=== PATIENT | male | born 1950 | race Caucasian/White ===

== ENCOUNTER 2017-07-19 14:17 | Outpatient (CLI) | payer OTHER ==
--- NOTE | 2017-07-19 15:52 | MRI ---
MRI LUMBAR SPINE NONCONTRAST: 07/19/17 HISTORY: Low back pain. Radiculopathy. FINDINGS: Conus medullaris has a normal appearance. Mild chronic compression of the L2 inferior end plate is ap parent. Scattered hemangiomas are apparent within the bone marrow of the vertebral bodies. There is d esiccation of all the intervertebral disc. T12-L1: Central canal and neural foramina are patent. L1-2: Mild disc space narrowing. Minimal posterior disc bulge with posterior annular fissure. Thecal sac and neural foramina are patent. L2-3: Disc space narrowing. Minimal spondylolisthesis. Mild posterior disc bulge. Thecal sac is paten t. Neural foramina are patent. L3-4: Far left lateral disc bulge encroaches upon the left L3 nerve root within the neural foramen. T he posterior component of the disc bulge and circumferential degenerative changes result in mild to m oderate stenosis of the central canal. L4-5: Disc space narrowing. Minimal degenerative spondylolisthesis. Posterior disc bulge and circumfe rential degenerative changes result in moderate stenosis of the central canal and mild stenosis of ea ch neural foramen. L5-S1: Posterior disc bulge. Thecal sac and neural foramina are patent. IMPRESSION: Mild multilevel degenerative changes throughout the lumbar spine as detailed above. Stenosis is great est at the L4-5 level central canal. Clinical correlation regarding other signs and symptoms of pseud oclaudication is required. POS: [facility]
--- NOTE | 2017-07-19 15:57 | RAD ---
THREE VIEWS LUMBAR SPINE INCLUDING FLEXION AND EXTENSION VIEWS 07/19/17 HISTORY: Low back pain for three years which has gotten worse in the past three months. COMPARISON: 09/23/14 FINDINGS: Again noted is slight height loss along the superior end plate of the L2 vertebral body without johansen e in degree of loss of height from the prior study suggesting a minimal remote compression fracture o f L2. Degenerative changes are again seen throughout the lumbar spine. Mild narrowing of the intervertebral disc spaces are again present at multiple levels. No acute fracture or subluxation is seen and there is no abnormal translational motion seen between the flexion and extension views. Surgical clips ove rlie the upper abdomen as well as overlying the pelvis. Vascular calcifications are again seen in the abdominal aorta and leonor arteries. IMPRESSION: 1. Stable minimal compression fracture of the L2 vertebral body. No new compression fracture or subluxation is seen involving the lumbar spine. 2. Mild multilevel degenerative changes lumbar spine. POS: [facility]
== END 2017-07-19 14:18 | disposition home or self-care (01) ==
LOC: SCSMRI 14:17
PROVIDERS: ATTEND Neurological Surgery
DX: M47.26 Other spondylosis with radiculopathy, lumbar region (principal); M48.061 Spinal stenosis, lumbar region without neurogenic claudication
CPT/HCPCS: 72100; 72148

== ENCOUNTER 2019-03-12 08:39 | Outpatient (CLI) | payer MEDICARE ==
[2019-03-12 10:45] LABS: #Basophils 0.1 thou/uL (0.0-0.2); #Eosinphils 0.4 thou/uL (0.0-0.7); #Lymphocytes 2.7 thou/uL (1.20-3.40); #Monocytes 1.2 thou/uL (0.11-0.59); #Neutrophils 7.3 thou/uL (1.40-6.50); %Basophils 0.6 % (0.0-1.0); %Eosinophils 3.3 % (0.0-10.0); %Monocytes 10.2 % (0.0-10.0); Hemoglobin 14.6 g/dL (14.0-18.0); Mean Corpuscular HGB CONC 32.5 g/dL (32.0-36.0); Mean Corpuscular Hemoglobin 30.7 pg (27.0-31.0); Mean Corpuscular Volume 94.4 fL (78.0-98.0); Mean Platelet Volume 6.9 fL (7.4-10.4); Platelet Count 350 thou/uL (130-400); RBC Distribution Width 12.4 % (11.5-14.5); Red Blood Cell (RBC) Count 4.74 mill/uL (4.70-6.10); White Blood Cell (WBC) Count 11.6 thou/uL (4.8-10.8)
[2019-03-12 10:50] LABS: INR-International Normal Ratio 0.9; Prothrombin Time 12.2 SEC (12.0-14.7)
[2019-03-12 11:04] LABS: Anion Gap 12 mmol/L (10-20); BUN (Urea Nitrogen) 16 mg/dL (8.4-25.7); Calc. Creatinine Clearance 0 mL/min (70-130); Calcium 9.3 mg/dL (7.8-10.44); Carbon Dioxide 23 mmol/L (23-31); Chloride 105 mmol/L (98-107); Estimated GFR-MDRD 84; Glucose 95 mg/dL (80-115); Potassium 4.8 mmol/L (3.5-5.1); Sodium 135 mmol/L (136-145)
[2019-03-12 13:17] LABS: Bilirubin Negative (Negative); Blood, Urine Negative (Negative); Clarity Clear (Clear); Glucose, Urine (Dipstick) Normal (Negative); Leukocyte Negative Leu/uL (Negative); Nitrite Negative (Negative); Protein, Urine (Dipstick) 10 mg/dL (Neg-Trace); RBC/HPF 0-3 HPF (0-3); Squamous Epithelial 0-3 HPF (0-3); WBC/HPF 0-3 HPF (0-3)
[2019-03-12 13:32] LABS: Bacteria/HPF None Seen HPF (None Seen)
[2019-03-12 13:33] LABS: Sperm/HPF Rare HPF (None Seen)
== END 2019-03-12 08:40 | disposition home or self-care (01) ==
LOC: LABBT 08:39
PROVIDERS: ATTEND Orthopaedic Surgery
DX: Z01.818 Encounter for other preprocedural examination (principal); M17.32 Unilateral post-traumatic osteoarthritis, left knee
CPT/HCPCS: 80048; 81001; 85025; 85610; 87081; 93005; 93010

== ENCOUNTER 2019-03-30 06:48 | Day surgery (SDC) | payer MEDICARE ==
[2019-03-12 08:47] VITALS: BMI 30.4
--- NOTE | 2019-03-26 08:50 | HP ---
Date is 03/30/2019. HISTORY OF PRESENT ILLNESS: The patient is a 68-year-old male with a several- year history of progressive problems with the left knee. He has had no recent injury. He has had 2 previous left knee arthroscopies. He has weightbearing pain, which is persistent despite rest, restriction of activities, anti-inflammatory medications, and previous cortisone injections. He has had a previous right total knee replacement 6 years ago with good results. PAST MEDICAL HISTORY: The patient has had a lumbar fusion by Dr. Fuchs but does have some chronic pain and is followed by Dr. Johnson for pain management and takes oxycodone. He has had a previous rotator cuff surgery and cholecystectomy. He has a history of hypertension, chronic pain, and anxiety. CURRENT MEDICATIONS: Include: 1. Losartan. 2. Escitalopram. 3. Alprazolam. 4. Hydrocodone or oxycodone. ALLERGIES: HE HAS NO KNOWN ALLERGIES. FAMILY HISTORY: Otherwise unremarkable. SOCIAL HISTORY: Otherwise unremarkable. REVIEW OF SYSTEMS: Otherwise unremarkable. PHYSICAL EXAMINATION: GENERAL: This is a healthy male. HEENT: Unremarkable. NECK: Supple. CHEST: Clear. HEART: Regular rate and rhythm. ABDOMEN: Soft. Nontender. RECTAL AND GENITAL: Deferred. EXTREMITIES: Pertinent findings related to the left knee. There is no effusion. There is moderate varus deformity. There is tenderness and crepitus over the medial joint line. There are healed arthroscopy puncture sites. Range of motion is 5 to 120 degrees. There is no definite instability. NEUROLOGIC: Neurovascular exam is intact. Distal pulses are 1+. There is a slight left antalgic gait. DIAGNOSTIC STUDIES: X-rays of the left knee reveal [id number] collapse medially with progression from previous x-rays. IMPRESSION: 1. Posttraumatic degenerative arthritis, left knee. 2. Status post right total knee replacement. 3. Status post lumbar fusion with chronic pain. 4. History of hypertension. PLAN: Left total knee replacement. The nature of the surgery, length of recovery, and potential complications such as infection, loss of motion, incomplete relief , delayed wound healing, neurovascular injury, thromboembolic phenomena, possible transfusion, need for revision have been discussed in detail. Job ID: [id number] [facility]
[2019-03-30] MEDS ORDERED: Sodium Chloride 0.9% 100 ML ONE (07:36)
[2019-03-30] MEDS ORDERED: Tranexamic Acid 1,000 MG/10 ML VIAL ONE ×2 (07:36→11:15)
[2019-03-30] MEDS ORDERED: Vancomycin 1.5 GRAM/300 ML BAG 1.5 GM in Premix Bag 1 BAG IVPB SCH ×3 (08:00→23:00)
[2019-03-30] MEDS ORDERED: Fentanyl 100 MCG/2 ML VIAL ONE ×6 (08:01→13:07)
[2019-03-30] MEDS ORDERED: Midazolam HCl 2 mg/2 ml Vial ONE (08:01)
[2019-03-30] MEDS ORDERED: Zolpidem Tartrate 5 MG TAB PO PRN ×3 (08:54→14:34)
[2019-03-30] MEDS ORDERED: Ondansetron PF 4 MG/2 ML Vial IVP PRN ×2 (08:54→14:34)
[2019-03-30] MEDS ORDERED: traMADol HCl 50 MG TAB PO PRN ×3 (08:54→14:34)
[2019-03-30] MEDS ORDERED: Promethazine HCl 25 MG/ML VIAL IM PRN ×2 (08:54→12:40)
[2019-03-30] MEDS ORDERED: HYDROcodone/Acetaminophen 10/325 mg Tablet PO PRN ×4 (08:54→14:34)
[2019-03-30] MEDS ORDERED: Fentanyl 100 MCG/2 ML VIAL SLOW IVP PRN ×3 (08:54→14:34)
[2019-03-30] MEDS ORDERED: Ropivacaine HCl/PF 250 ML in Premix Bag 1 BAG NERVE BLCK SCH (08:54)
[2019-03-30] MEDS ORDERED: Acetaminophen 325 MG TAB PO PRN ×2 (08:55→14:34)
[2019-03-30] MEDS ORDERED: Bupivacaine 0.25% HCL 30 ML VIAL ONE (08:56)
[2019-03-30] MEDS ORDERED: Lidocaine 1% w/Epinephrine 1:100K 20 ML VIAL ONE (08:56)
[2019-03-30] MEDS ORDERED: Vancomycin 1.5 GRAM/300 ML BAG 1.5 GM/300 ML BAG ONE (09:16)
[2019-03-30] MEDS ORDERED: ePHEDrine/0.9% NaCl/PF SYRINGE 50 mg/10 ml ONE (10:32)
[2019-03-30] MEDS ORDERED: Ondansetron PF 4 MG/2 ML Vial ONE (10:32)
[2019-03-30] MEDS ORDERED: Metoclopramide HCl 10 MG/2 ML VIAL ONE (10:32)
[2019-03-30] MEDS ORDERED: Lidocaine 1% PF 5 ML VIAL ONE (10:32)
[2019-03-30] MEDS ORDERED: Ropivacaine 0.2% HCl/PF (40 MG/20 ML VIAL) ONE (10:32)
[2019-03-30] MEDS ORDERED: Dexamethasone 20 MG/5 ML VIAL ONE (10:32)
[2019-03-30] MEDS ORDERED: PROPOFOL 200 MG/20 ML VIAL ONE (10:32)
[2019-03-30] MEDS ORDERED: Bupivacaine HCl 0.5%/Epinephrine 1:200,000/PF 30 ml Vial ONE (10:32)
[2019-03-30] MEDS ORDERED: Ketorolac Tromethamine 30 MG/ML VIAL ONE (10:32)
[2019-03-30] MEDS ORDERED: Tranexamic Acid 1,000 MG in Sodium Chloride 0.9% 100 ML IVPB SCH ×2 (11:12→11:30)
--- NOTE | 2019-03-30 11:49 | OP ---
DATE OF PROCEDURE: 03/30/2019 [employer] PRO[employer] DIRECTOR: Hortensia Castellanos PA-C ANESTHESIA: General plus adductor canal and sciatic nerve blocks. PREOPERATIVE DIAGNOSIS: Degenerative arthritis, left knee. POSTOPERATIVE DIAGNOSIS: Degenerative arthritis, left knee. PROCEDURE PERFORMED: Left total knee replacement with computer-assisted navigation with cemented Juan Luis Triathlon components (#6 femoral component, #6 primary tibial baseplate with 9-mm CS plastic insert, and all-plastic A32 patellar component). DESCRIPTION OF PROCEDURE: After satisfactory anesthesia was induced in supine position, sequential compression device was placed on the nonoperative leg throughout the procedure. The left leg was then prepped and draped in routine sterile fashion. The left leg was elevated and exsanguinated with an Esmarch bandage and the tourniquet inflated to 300 mmHg. A gently curved medial parapatellar incision was made, carried down through the subcutaneous tissues. Bleeding points were controlled with Bovie cautery. Medial parapatellar arthrotomy was performed. Patella was cleared laterally and portion of the fat pad were excised for exposure. There was marked degenerative arthritis of the knee of all compartments, especially medially with large areas of exposed bone. Meniscal remnants and osteophytes were removed. Using the [employer] pinless navigation system and the appropriate guides, the distal femoral and proximal tibial articular surfaces were excised with an oscillating saw to accept the trial components. It was felt that #6 femoral component, #6 primary tibial baseplate with 9-mm CS plastic insert gave appropriate size, fit, stability, and correction of the preoperative deformity. The patellar articular surface was excised to accept an all-plastic A32 patellar component. There was good patellar tracking and good range of motion. The trial components were removed. The knee was copiously irrigated with pulsatile lavage, and the bony surfaces were thoroughly cleaned and dried. The permanent components were then cemented in a single stage using 1 pack of cement premixed with 1 g of tobramycin powder. Excess cement was removed. There was then good fit and stability of the components. The knee was then copiously irrigated. The medial retinaculum and quadriceps mechanism were closed with interrupted #2 Vicryl and a running #2 Quill. The skin was infiltrated with a 50 mL mixture of 50%, 0.25% Marcaine and 1% lidocaine with epinephrine. Subcutaneous tissues were closed with a running 0 Quill suture and the skin closed with running subcuticular 3-0 Monoderm and Surgicel skin adhesive. A sterile bulky compressive dressing was applied. The tourniquet deflated after 72 minutes. The foot promptly pinked up. Sequential compression device was placed on his operative leg and was awakened and taken to the recovery room in stable condition. There were no apparent intraoperative complications. The estimated blood loss was less than 100 mL. Job ID: [id number]
[2019-03-30] MEDS ORDERED: diphenhydrAMINE 25 MG CAP PO PRN ×2 (12:40→14:34)
[2019-03-30] MEDS ORDERED: Naloxone HCl 0.4 mg/ml Vial IV PRN (12:40)
[2019-03-30] MEDS ORDERED: diphenhydrAMINE 50 MG/ML VIAL IM/IV PRN (12:40)
--- NOTE | 2019-03-30 13:33 | RAD ---
LEFT KNEE 2 VIEWS: Date: 03/30/2019 HISTORY: Postop. FINDINGS: Total knee prosthesis has been placed, which is in good position without evidence of fracture. IMPRESSION: Placement of total knee prosthesis. POS: [facility]
[2019-03-30] MEDS ORDERED: Promethazine HCl 25 MG/ML VIAL SLOW IVP PRN (14:34)
--- NOTE | 2019-03-30 14:36 | PDOC.HOSPP ---
- Subjective Encounter Date: 03/30/19 Encounter Time: 14:00 Subjective: no sob or chest pain feels better, pain around 6/10 at bedside - Objective Vital Signs & Weight: Weight Weight 200 lb - Exam General Appearance: awake alert Eye: PERRL, anicteric sclera ENT: no oropharyngeal lesions, moist mucosa Neck: supple, no JVD Heart: RRR, no murmur Respiratory: no wheezes, no rales Gastrointestinal: soft, non-tender, non-distended, normal bowel sounds Extremities: no cyanosis, no edema Extremities - other findings: left knee in dressing Neurological: cranial nerve grossly intact, no focal deficits Psychiatric: normal affect, A&O x 3 Hosp A/P (1) Status post total knee replacement, left Code(s): Z96.652 - PRESENCE OF LEFT ARTIFICIAL KNEE JOINT Status: Acute (2) HTN (hypertension) Code(s): I10 - ESSENTIAL (PRIMARY) HYPERTENSION Status: Chronic Qualifiers: Hypertension type: essential hypertension Qualified Code(s): I10 - Essential (primary) hypertension (3) Anxiety disorder Code(s): F41.9 - ANXIETY DISORDER, UNSPECIFIED Status: Chronic Qualifiers: Anxiety disorder type: generalized anxiety disorder Qualified Code(s): F41.1 - Generalized anxiety disorder (4) Obesity (BMI 30.0-34.9) Code(s): E66.9 - OBESITY, UNSPECIFIED Status: Chronic (5) BPH (benign prostatic hyperplasia) Code(s): N40.0 - BENIGN PROSTATIC HYPERPLASIA WITHOUT LOWER URINRY TRACT SYMP Status: Chronic Qualifiers: Lower urinary tract symptom presence: symptoms absent Qualified Code(s): N40.0 - Benign prostatic hyperplasia without lower urinary tract symptoms - Plan is on asp bid, losartan, toprol xl low dose, norvasc 5mg daily continue escitalopram and avodart on fentanyl, toradol prn, ropivacaine nr block will f/u hemostable
[2019-03-30] MEDS: CEFAZOLIN 2 GM in Premix Bag 1 BAG IVPB SCH ×2 (15:00→22:23)
[2019-03-30] MEDS: Ketorolac Tromethamine 30 MG/ML VIAL IVP SCH ×4 (15:21→23:48)
[2019-03-30] MEDS: Sodium Chloride 0.9% 1,000 ML IV SCH (15:22)
[2019-03-30 15:42] LABS: Syphilis Antibody Nonreactive (Nonreactive); Syphilis Antibody Index 0.05 S/CO (<1.00 Non-Reactive)
[2019-03-30 16:10] LABS: HBSAB Concentration 2.22 mIU/mL; HBSAg Index 0.41 S/CO (0-0.99); HIV (1/2) Antibody/Antigen Non-Reactive (NonReactive); HIV 1/2 INDEX 0.16 S/CO (<1.00); Hep A IgM AB Non-Reactive (NonReactive); Hep A IgM S/CO 0.17 S/CO (0-0.79); Hep B Core Total Ab Non-Reactive (NonReactive); Hep B Core Total Index 0.36 S/CO (0-0.79); Hep B Surf AB Non-Reactive (NonReactive); Hep B Surf Ag Non-Reactive S/CO (NonReactive); Hep C IgG Ab Non-Reactive (NonReactive); Hep C Index 0.15 S/CO (0-0.79)
[2019-03-30] MEDS: Acetaminophen 500 MG TAB PO SCH ×2 (18:08→23:49)
[2019-03-30] MEDS: Dutasteride 0.5 MG CAP PO SCH (20:27)
[2019-03-30] MEDS: Losartan 25 MG TAB PO SCH ×2 (20:27→20:29)
[2019-03-30] MEDS: Aspirin 81 mg Enteric Coated Tablet PO SCH (20:27)
[2019-03-30] MEDS: Senokot S 8.6-50 MG TAB PO SCH (20:27)
[2019-03-30] MEDS: BROMFENAC SODIUM L EYE SCH (20:30)
[2019-03-30] MEDS: fentaNYL Citrate/PF 2,000 MCG in Sodium Chloride 0.9% 60 ML IV PRN (23:45)
[2019-03-31] MEDS: Sodium Chloride 0.9% 1,000 ML IV SCH ×4 (01:16→20:41)
[2019-03-31] MEDS ORDERED: Fentanyl 100 MCG/2 ML VIAL SLOW IVP PRN (03:35)
[2019-03-31] MEDS: HYDROcodone/Acetaminophen 10/325 mg Tablet PO PRN ×3 (03:43→12:15)
[2019-03-31] MEDS: Ketorolac Tromethamine 30 MG/ML VIAL IVP SCH ×4 (05:17→23:04)
[2019-03-31] MEDS: Acetaminophen 500 MG TAB PO SCH ×4 (05:17→23:03)
[2019-03-31 05:18] LABS: Hemoglobin 12.3 g/dL (14.0-18.0); Mean Corpuscular HGB CONC 34.5 g/dL (32.0-36.0); Mean Corpuscular Hemoglobin 32.4 pg (27.0-31.0); Mean Corpuscular Volume 93.8 fL (78.0-98.0); Mean Platelet Volume 7.1 fL (7.4-10.4); Platelet Count 316 thou/uL (130-400); RBC Distribution Width 12.2 % (11.5-14.5); Red Blood Cell (RBC) Count 3.79 mill/uL (4.70-6.10); White Blood Cell (WBC) Count 18.4 thou/uL (4.8-10.8)
[2019-03-31] MEDS: traMADol HCl 50 MG TAB PO PRN ×2 (06:27→14:38)
[2019-03-31] MEDS: BROMFENAC SODIUM L EYE SCH ×2 (07:56→20:12)
[2019-03-31] MEDS: Aspirin 81 mg Enteric Coated Tablet PO SCH ×2 (07:57→20:12)
[2019-03-31] MEDS: Multivitamin W/ Minerals 1 TAB PO SCH (07:57)
[2019-03-31] MEDS: Senokot S 8.6-50 MG TAB PO SCH ×2 (07:57→20:12)
[2019-03-31] MEDS: fentaNYL Citrate/PF 2,000 MCG in Sodium Chloride 0.9% 60 ML IV PRN (10:07)
--- NOTE | 2019-03-31 11:17 | PDOC.HOSPP ---
- Subjective Encounter Date: 03/31/19 Encounter Time: 08:15 Subjective: has some pain, was able to sleep last night no sob or chest pain ate his breakfast well - Objective Vital Signs & Weight: Vital Signs (12 hours) Temp Pulse Resp BP BP Pulse Ox 03/31/19 10:30 97.8 F 87 16 129/74 92 L 03/31/19 08:00 92 L 03/31/19 07:40 97.9 F 88 16 108/66 92 L 03/31/19 03:01 97.7 F 99 16 128/85 93 L Weight Weight 200 lb I&O: 03/30/19 03/31/19 04/01/19 06:59 06:59 06:59 Intake Total 2882 Balance 2882 Result Diagrams: 03/31/19 04:43 Hospitalist ROS - Medication Medications: Active Medications Generic Name Dose Route Start Last Admin Trade Name Freq PRN Reason Stop Dose Admin Acetaminophen 1,000 mg 03/30/19 18:00 03/31/19 05:17 Tylenol PO 04/02/19 12:01 Not Given Q6HR DONTRELL Hydrocodone Bitart/Acetaminophen 2 tab 03/31/19 03:37 03/31/19 07:54 [place] 10/325 PO 2 tab Q4H PRN Administration Severe Pain (7-10) Aspirin 81 mg 03/30/19 21:00 03/31/19 07:57 Ecotrin PO 81 mg BID DONTRELL Administration Dutasteride 0.5 mg 03/30/19 21:00 03/30/19 20:27 Avodart PO 0.5 mg HS DONTRELL Administration Fentanyl Citrate 2,000 mcg/ 100 mls @ 0 mls/hr 03/30/19 12:40 03/31/19 10:07 Sodium Chloride IV 100 mls INF PRN Administration Pain As Directed Sodium Chloride 1,000 mls @ 100 mls/hr 03/30/19 14:34 03/31/19 01:16 Normal Saline 0.9% IV Not Given .Q10H DONTRELL Iron/Minerals/Multivitamins 1 tab 03/31/19 09:00 03/31/19 07:57 Theragran M PO 1 tab DAILY DONTRELL Administration Ketorolac Tromethamine 15 mg 03/30/19 18:00 03/31/19 05:17 Toradol IVP 01/08/20 18:01 15 mg Q6HR DONTRELL Administration Losartan Potassium 100 mg 03/30/19 21:00 03/30/19 20:29 Cozaar PO Not Given HS DONTRELL Bromfenac Sodium [ 1 each 03/30/19 21:00 03/31/19 07:56 Prolensa]Ophthalmic L EYE 1 each BID DONTRELL Administration Senna/Docusate Sodium 2 tab 03/30/19 21:00 03/31/19 07:57 Senokot S PO 2 tab BID DONTRELL Administration Tramadol HCl 50 mg 03/31/19 03:38 03/31/19 06:27 Ultram PO 50 mg Q6H PRN Administration Mild Pain (1-3) - Exam General Appearance: awake alert Eye: PERRL, anicteric sclera ENT: no oropharyngeal lesions, moist mucosa Neck: supple, no JVD Heart: RRR, no murmur Respiratory: no wheezes, no rales Gastrointestinal: soft, non-tender, non-distended, normal bowel sounds Extremities: no cyanosis, no edema Neurological: cranial nerve grossly intact, no focal deficits Psychiatric: normal affect, A&O x 3 Hosp A/P (1) Status post total knee replacement, left Code(s): Z96.652 - PRESENCE OF LEFT ARTIFICIAL KNEE JOINT Status: Acute (2) HTN (hypertension) Code(s): I10 - ESSENTIAL (PRIMARY) HYPERTENSION Status: Chronic Qualifiers: Hypertension type: essential hypertension Qualified Code(s): I10 - Essential (primary) hypertension (3) Anxiety disorder Code(s): F41.9 - ANXIETY DISORDER, UNSPECIFIED Status: Chronic Qualifiers: Anxiety disorder type: generalized anxiety disorder Qualified Code(s): F41.1 - Generalized anxiety disorder (4) Obesity (BMI 30.0-34.9) Code(s): E66.9 - OBESITY, UNSPECIFIED Status: Chronic (5) BPH (benign prostatic hyperplasia) Code(s): N40.0 - BENIGN PROSTATIC HYPERPLASIA WITHOUT LOWER URINRY TRACT SYMP Status: Chronic Qualifiers: Lower urinary tract symptom presence: symptoms absent Qualified Code(s): N40.0 - Benign prostatic hyperplasia without lower urinary tract symptoms - Plan is on asp bid, losartan, toprol xl low dose, norvasc 5mg daily continue escitalopram and avodart on fentanyl, toradol prn, ropivacaine nr block dc plan per ortho adv hemostable
[2019-03-31] MEDS: Amlodipine 5 MG TAB PO SCH (12:15)
--- NOTE | 2019-03-31 13:52 | PRG ---
DATE OF SERVICE: 03/31/2019 SUBJECTIVE: Em is a 68-year-old male, postop day 1 from left total knee arthroplasty. He is doing relatively well. Pain is controlled. OBJECTIVE: VITAL SIGNS: Temperature 97.8, pulse 86, respiratory rate 16, and blood pressure 129/74. GENERAL: He is alert and oriented to person, place, time, and situation, responsive and appropriate with examiner. EXTREMITIES: Incision is clean. He is neurovascularly intact in the left lower extremity. LABORATORY DATA: Hemoglobin and hematocrit 12.3 and 35.5. IMPRESSION: A 68-year-old male postop day 1, left total knee arthroplasty, doing well. PLAN: Continue current care. Probable discharge home tomorrow. Job ID: [id number] MTDD
[2019-03-31] MEDS ORDERED: oxyCODONE 5 MG TAB PO PRN (16:12)
[2019-03-31] MEDS: oxyCODONE 5 MG TAB PO PRN ×2 (16:27→22:35)
[2019-03-31] MEDS: Morphine 4 MG/ML VIAL SLOW IVP PRN ×4 (16:59→23:04)
[2019-03-31] MEDS: Dutasteride 0.5 MG CAP PO SCH (20:12)
[2019-03-31] MEDS: Losartan 25 MG TAB PO SCH (20:12)
[2019-03-31] MEDS: Ondansetron PF 4 MG/2 ML Vial IVP PRN (23:04)
[2019-04-01] MEDS: Morphine 4 MG/ML VIAL SLOW IVP PRN ×8 (01:29→22:07)
[2019-04-01] MEDS: Acetaminophen 500 MG TAB PO SCH (06:07)
[2019-04-01] MEDS: oxyCODONE 5 MG TAB PO PRN ×3 (06:07→18:52)
[2019-04-01] MEDS: Ketorolac Tromethamine 30 MG/ML VIAL IVP SCH ×3 (06:07→18:56)
[2019-04-01] MEDS: Aspirin 81 mg Enteric Coated Tablet PO SCH ×2 (09:13→19:38)
[2019-04-01] MEDS: Senokot S 8.6-50 MG TAB PO SCH ×2 (09:13→19:38)
[2019-04-01] MEDS: Amlodipine 5 MG TAB PO SCH (09:14)
[2019-04-01] MEDS: Multivitamin W/ Minerals 1 TAB PO SCH (09:14)
[2019-04-01] MEDS ORDERED: Ondansetron ODT 4 MG TAB PO PRN (10:27)
[2019-04-01] MEDS ORDERED: oxyCODONE/Acetaminophen 5 mg/325 mg Tablet PO PRN (10:44)
--- NOTE | 2019-04-01 10:58 | PDOC.HOSPP ---
- Subjective Encounter Date: 04/01/19 Encounter Time: 09:00 Subjective: has pain in knee, no sob or chest pain - Objective Vital Signs & Weight: Vital Signs (12 hours) Temp Pulse Resp BP Pulse Ox 04/01/19 09:14 103 H 04/01/19 07:51 94 L 04/01/19 07:50 103 H 18 94 L 04/01/19 07:24 99.7 F H 106 H 20 132/75 92 L 04/01/19 03:53 98.8 F 82 20 107/70 96 03/31/19 23:34 98.7 F 89 20 122/68 94 L Weight Admit Weight 200 lb Weight 200 lb I&O: 03/31/19 04/01/19 04/02/19 06:59 06:59 06:59 Intake Total 2882 2370 Balance 2882 2370 Result Diagrams: 03/31/19 04:43 Hospitalist ROS - Medication Medications: Active Medications Generic Name Dose Route Start Last Admin Trade Name Freq PRN Reason Stop Dose Admin Amlodipine Besylate 5 mg 03/31/19 09:00 04/01/19 09:14 Norvasc PO 5 mg DAILY DONTRELL Administration Aspirin 81 mg 03/30/19 21:00 04/01/19 09:13 Ecotrin PO 81 mg BID DONTRELL Administration Dutasteride 0.5 mg 03/30/19 21:00 03/31/19 20:12 Avodart PO 0.5 mg HS DONTRELL Administration Ropivacaine 250 ml/ Device 250 mls @ 10 mls/hr 03/30/19 08:54 03/31/19 13:07 NERVE BLCK 04/02/19 08:53 250 mls INF DONTRELL Administration Sodium Chloride 1,000 mls @ 100 mls/hr 03/30/19 14:34 03/31/19 20:41 Normal Saline 0.9% IV Not Given .Q10H DONTRELL Iron/Minerals/Multivitamins 1 tab 03/31/19 09:00 04/01/19 09:14 Theragran M PO 1 tab DAILY DONTRELL Administration Ketorolac Tromethamine 15 mg 03/30/19 18:00 04/01/19 06:07 Toradol IVP 04/01/19 18:01 15 mg Q6HR DONTRELL Administration Losartan Potassium 100 mg 03/30/19 21:00 03/31/19 20:12 Cozaar PO Not Given HS [facility] Metoprolol Succinate 25 mg 03/31/19 09:00 04/01/19 09:14 Toprol Xl PO 25 mg DAILY DONTRELL Administration Morphine Sulfate 4 mg 03/31/19 16:11 04/01/19 09:01 Morphine SLOW IVP 4 mg Q2H PRN Administration Breakthrough Pain Ondansetron HCl 4 mg 03/30/19 12:40 03/31/19 23:04 Zofran IVP 4 mg Q6H PRN Administration Nausea/Vomiting Oxycodone HCl 10 mg 03/31/19 16:12 04/01/19 06:07 Oxycodone Ir PO 10 mg Q6H PRN Administration PAIN (5-8) Bromfenac Sodium [ 1 each 03/30/19 21:00 03/31/19 20:12 Prolensa]Ophthalmic L EYE 1 each BID DONTERLL Administration Senna/Docusate Sodium 2 tab 03/30/19 21:00 04/01/19 09:13 Senokot S PO 2 tab BID DONTRELL Administration Sodium Chloride 10 ml 03/30/19 14:34 04/01/19 01:29 Flush - Normal Saline IVF 10 ml PRN PRN Administration Saline Flush Tramadol HCl 50 mg 03/31/19 03:38 03/31/19 14:38 Ultram PO 50 mg Q6H PRN Administration Mild Pain (1-3) - Exam General Appearance: awake alert Eye: PERRL, anicteric sclera ENT: no oropharyngeal lesions, moist mucosa Neck: supple, no JVD Heart: RRR, no murmur Respiratory: no wheezes, no rales Gastrointestinal: soft, non-tender, non-distended, normal bowel sounds Extremities: no cyanosis, no clubbing Neurological: cranial nerve grossly intact, no focal deficits Psychiatric: normal affect, A&O x 3 Hosp A/P (1) Status post total knee replacement, left Code(s): Z96.652 - PRESENCE OF LEFT ARTIFICIAL KNEE JOINT Status: Acute (2) HTN (hypertension) Code(s): I10 - ESSENTIAL (PRIMARY) HYPERTENSION Status: Chronic Qualifiers: Hypertension type: essential hypertension Qualified Code(s): I10 - Essential (primary) hypertension (3) Anxiety disorder Code(s): F41.9 - ANXIETY DISORDER, UNSPECIFIED Status: Chronic Qualifiers: Anxiety disorder type: generalized anxiety disorder Qualified Code(s): F41.1 - Generalized anxiety disorder (4) Obesity (BMI 30.0-34.9) Code(s): E66.9 - OBESITY, UNSPECIFIED Status: Chronic (5) BPH (benign prostatic hyperplasia) Code(s): N40.0 - BENIGN PROSTATIC HYPERPLASIA WITHOUT LOWER URINRY TRACT SYMP Status: Chronic Qualifiers: Lower urinary tract symptom presence: symptoms absent Qualified Code(s): N40.0 - Benign prostatic hyperplasia without lower urinary tract symptoms - Plan is on asp bid, losartan, toprol xl low dose, norvasc 5mg daily continue escitalopram and avodart on fentanyl, toradol prn, ropivacaine nr block dc plan per ortho adv hemostable will sign off, please recall if you need help.
[2019-04-01] MEDS ORDERED: oxyCODONE 5 MG TAB PO PRN (11:29)
[2019-04-01] MEDS: oxyCODONE/Acetaminophen 5 mg/325 mg Tablet PO PRN ×2 (12:39→18:54)
[2019-04-01] MEDS: BROMFENAC SODIUM L EYE SCH ×2 (13:44→19:40)
[2019-04-01] MEDS: Sodium Chloride 0.9% 1,000 ML IV SCH ×2 (13:46→19:52)
[2019-04-01] MEDS: Dutasteride 0.5 MG CAP PO SCH (19:38)
[2019-04-01] MEDS: Losartan 25 MG TAB PO SCH (19:39)
[2019-04-01] MEDS: Ondansetron PF 4 MG/2 ML Vial IVP PRN (22:07)
[2019-04-02] MEDS: Morphine 4 MG/ML VIAL SLOW IVP PRN ×6 (00:02→11:40)
[2019-04-02] MEDS: oxyCODONE/Acetaminophen 5 mg/325 mg Tablet PO PRN ×3 (00:45→13:46)
[2019-04-02] MEDS: oxyCODONE 5 MG TAB PO PRN ×3 (00:46→13:47)
[2019-04-02] MEDS: Ondansetron PF 4 MG/2 ML Vial IVP PRN (04:04)
[2019-04-02] MEDS: Senokot S 8.6-50 MG TAB PO SCH (08:42)
[2019-04-02] MEDS: Amlodipine 5 MG TAB PO SCH (08:42)
[2019-04-02] MEDS: Aspirin 81 mg Enteric Coated Tablet PO SCH (08:42)
[2019-04-02] MEDS: Sodium Chloride 0.9% 1,000 ML IV SCH (08:44)
[2019-04-02] MEDS: Multivitamin W/ Minerals 1 TAB PO SCH (08:44)
[2019-04-02] MEDS: BROMFENAC SODIUM L EYE SCH (08:50)
[2019-04-02] MEDS ORDERED: fentaNYL 75 mcg/hour Patch TD SCH (13:00)
[2019-04-02 13:08] VITALS: BP 118/66; TEMP 99.3
[2019-04-02] MEDS ORDERED: Acetaminophen 325 MG TAB PO PRN (18:00)
== END 2019-04-02 14:41 | disposition home or self-care (01) ==
LOC: SDC 06:48 → SJJU 14:07 → SDC 04-02 14:41
PROVIDERS: ATTEND Orthopaedic Surgery
PROC: 0SRD0J9 Replacement of Left Knee Joint with Synthetic Substitute, Cemented, Open Approach (ICD-10-PCS; principal; 2019-03-30)
PROC: 8E0YXBZ Computer Assisted Procedure of Lower Extremity (ICD-10-PCS; 2019-03-30)
DX: M17.32 Unilateral post-traumatic osteoarthritis, left knee (principal); G89.29 Other chronic pain; I10 Essential (primary) hypertension; N40.0 Benign prostatic hyperplasia without lower urinary tract symptoms; F17.210 Nicotine dependence, cigarettes, uncomplicated; F41.9 Anxiety disorder, unspecified; E66.9 Obesity, unspecified; Z68.30 Body mass index [BMI] 30.0-30.9, adult; Z79.899 Other long term (current) drug therapy; Z96.651 Presence of right artificial knee joint; Z98.1 Arthrodesis status; Z98.890 Other specified postprocedural states
CPT/HCPCS: 20985; 27447; 73560; 85027; 86704; 86706; 86709; 86780; 86803; 87340; 87389; 97110; 97116 ×4; 97139 ×6; 97150 ×2; 97530 ×2; 98960; 98961 ×2; C1713; C1776; J3010 ×2; 36415; J0670; J0690; J1100; J1885; J2001; J2250; J2270; J2405; J2704; J2765; J2795; J3490; S0020

== ENCOUNTER 2021-01-06 15:43 | Outpatient (CLI) | payer MEDICARE ==
[2021-01-06 17:01] LABS: Hemoglobin 14.2 g/dL (13.5-17.5); Mean Corpuscular HGB CONC 33.3 g/dL (32.0-36.0); Mean Corpuscular Hemoglobin 30.5 pg (27.0-33.0); Mean Corpuscular Volume 91.4 fl (81.2-95.1); Platelet Count 358 10x3/uL (150-450); RBC Distribution Width 12.9 % (11.5-14.5); Red Blood Cell (RBC) Count 4.66 10x6/uL (4.32-5.72); White Blood Cell (WBC) Count 10.7 10x3/uL (3.5-10.5)
[2021-01-06 17:09] LABS: Anion Gap 16 mmol/L (10-20); BUN (Urea Nitrogen) 24 mg/dL (8.4-25.7); Calc. Creatinine Clearance 0 mL/min (70-130); Calcium 9.6 mg/dL (7.8-10.44); Carbon Dioxide 19 mmol/L (23-31); Chloride 108 mmol/L (98-107); Glucose 88 mg/dL (80-115); Potassium 4.7 mmol/L (3.5-5.1); Sodium 138 mmol/L (136-145)
[2021-01-07 16:46] LABS: SARS-CoV-2 PCR by NAA DETECTED (NotDetected)
== END 2021-01-06 15:44 | disposition home or self-care (01) ==
LOC: LABBT 15:43
PROVIDERS: ATTEND Thoracic Surgery (Cardiothoracic Vascular Surgery)
DX: U07.1 COVID-19 (principal); Z01.818 Encounter for other preprocedural examination
CPT/HCPCS: 80048; 85027; U0003; U0005

== ENCOUNTER 2021-02-21 09:30 | Inpatient (IN) | payer MEDICARE ==
[2021-02-21 10:18] LABS: Hemoglobin 13.5 g/dL (13.5-17.5); Mean Corpuscular HGB CONC 32.2 g/dL (32.0-36.0); Mean Corpuscular Hemoglobin 30.8 pg (27.0-33.0); Mean Corpuscular Volume 95.4 fl (81.2-95.1); Platelet Count 397 10x3/uL (150-450); RBC Distribution Width 13.2 % (11.5-14.5); Red Blood Cell (RBC) Count 4.39 10x6/uL (4.32-5.72)
[2021-02-21 10:30] LABS: Anion Gap 13 mmol/L (10-20); BUN (Urea Nitrogen) 16 mg/dL (8.4-25.7); Calc. Creatinine Clearance 0 mL/min (70-130); Calcium 9.2 mg/dL (7.8-10.44); Carbon Dioxide 23 mmol/L (23-31); Chloride 107 mmol/L (98-107); Glucose 104 mg/dL (80-115); Potassium 4.6 mmol/L (3.5-5.1); Sodium 138 mmol/L (136-145)
[2021-02-24] MEDS ORDERED: ceFAZolin 2 GM/DEX 5% 100 ML BAG ONE (06:15)
[2021-02-24] MEDS ORDERED: Albumin 5% 0 ML ONE (06:20)
[2021-02-24] MEDS ORDERED: Midazolam HCl 5 mg/5 ml Vial ONE (10:37)
[2021-02-24] MEDS ORDERED: Fentanyl 250 MCG/5 ML VIAL ONE (10:37)
[2021-02-24] MEDS ORDERED: Midazolam HCl 2 mg/2 ml Vial ONE (10:45)
[2021-02-24] MEDS ORDERED: Ondansetron PF 4 MG/2 ML Vial ONE (11:33)
[2021-02-24] MEDS ORDERED: Protamine Sulfate 250 MG/25 ML VIAL ONE (11:33)
[2021-02-24] MEDS ORDERED: Aminocaproic Acid 5 GM/20 ML VIAL ONE (11:33)
[2021-02-24] MEDS ORDERED: Papaverine 60 MG/2 ML VIAL ONE (11:33)
[2021-02-24] MEDS ORDERED: Glycopyrrolate 0.2 MG/ML 5 ML SYRINGE ONE (11:33)
[2021-02-24] MEDS ORDERED: Magnesium Sulfate 1 GM/2 ML VIAL ONE (11:33)
[2021-02-24] MEDS ORDERED: Vecuronium 10 MG VIAL ONE (11:33)
[2021-02-24] MEDS ORDERED: Sodium Bicarb 50 MEQ/50 ML Abboject 8.4% SYRINGE ONE (11:33)
[2021-02-24] MEDS ORDERED: Heparin 5,000 UNITS/ML VIAL ONE (11:33)
[2021-02-24] MEDS ORDERED: Heparin 30,000 units/30 ml VIAL ONE (11:33)
[2021-02-24] MEDS ORDERED: Cardioplegic Soln 1,000 ML BAG ONE (11:33)
[2021-02-24] MEDS ORDERED: Potassium Chloride 60 MEQ/30 ML VIAL ONE (11:33)
[2021-02-24] MEDS ORDERED: Thrombin 5000 UNITS/5 ML VIAL ONE (11:33)
[2021-02-24] MEDS ORDERED: Lidocaine 2% PF 100 mg/5 ml Syringe ONE (11:33)
[2021-02-24] MEDS ORDERED: Mannitol 12.5 GM/50 ML ONE (11:33)
[2021-02-24] MEDS ORDERED: Calcium Chloride 1 GM/10 ML Abboject SYRINGE ONE (11:33)
[2021-02-24] MEDS ORDERED: PROPOFOL 200 MG/20 ML VIAL ONE (11:33)
[2021-02-24] MEDS ORDERED: PHENYLEPHRINE-NS 100 MCG/ML 10 ML SYRINGE ONE (12:04)
[2021-02-24] MEDS ORDERED: Fentanyl 100 MCG/2 ML VIAL ONE (13:12)
[2021-02-24] MEDS ORDERED: Insulin Regular 300 UNITS/3 ML VIAL ONE (14:06)
[2021-02-24] MEDS ORDERED: Nitroglycerin 50 MG/250 ML BOT 0 ML ONE (14:56)
[2021-02-24] MEDS ORDERED: Morphine 4 MG/ML VIAL ONE (14:57)
[2021-02-24] MEDS: Lactated Ringer's 1,000 ML IV SCH ×2 (15:00→19:25)
[2021-02-24 15:02] LABS: Actual Bicarbonate (HCO3a) 22.2 mEq/L (22-28); Base Excess (BEa) -4.5 mEq/L (-2.0 to +3.0); CO2 Tension 47.5 mmHg (35.0-45.0); Calcium, Ionized (arterial) 1.15 mmol/L (1.12-1.30); Carboxyhemoglobin (COHb) 0.5 gm% (0.0-3.0); Hemoglobin (Hb) 12.5 g/dL (14.0-18.0); O2 Tension (PaO2), arterial 88.1 mmHg (> 80.0); Potassium - ABG Lab 4.61 mmol/L (3.70-5.30); Puncture Site Arterial Line; pH, Arterial 7.29 (7.35-7.45)
[2021-02-24 15:03] LABS: ALV-art Gradient 280.325 mmHg (0-20)
[2021-02-24] MEDS ORDERED: Norepinephrine 8 MG/0.9% NS 250 ML IVPB PRN (15:07)
[2021-02-24] MEDS ORDERED: Hetastarch 6% 500 ML 500 ML IVPB PRN (15:07)
[2021-02-24] MEDS ORDERED: Nitroglycerin 50 MG/250 ML BOT 250 ML IVPB PRN (15:07)
[2021-02-24] MEDS ORDERED: DOPamine 400 MG/D5W 250 ML 250 ML IVPB PRN (15:07)
[2021-02-24] MEDS ORDERED: HYDROcodone/Acetaminophen 5/325 mg Tablet PO PRN (15:07)
[2021-02-24] MEDS ORDERED: Post-Op Insulin Drip Protocol IVPB ONE (15:07)
[2021-02-24] MEDS ORDERED: Guaifenesin DM 100-10/5 ML UDCUP PO PRN (15:07)
[2021-02-24] MEDS ORDERED: Promethazine HCl 25 MG/ML VIAL IM PRN (15:07)
[2021-02-24] MEDS ORDERED: Acetaminophen 325 MG TAB PO PRN (15:07)
[2021-02-24] MEDS ORDERED: Bisacodyl 10 MG SUPP PR PRN (15:07)
[2021-02-24] MEDS ORDERED: Morphine 2 MG/ML VIAL SLOW IVP PRN (15:07)
[2021-02-24] MEDS ORDERED: Ondansetron PF 4 MG/2 ML Vial IVP PRN (15:07)
[2021-02-24] MEDS ORDERED: hydrALAZINE 20 MG/ML VIAL SLOW IVP PRN (15:07)
[2021-02-24] MEDS ORDERED: Bisacodyl 5 MG TAB PO PRN (15:07)
[2021-02-24] MEDS ORDERED: Mag-Al 1200 mg/1200 mg/30 ML UDCUP PO PRN (15:07)
[2021-02-24] MEDS ORDERED: niCARdipine 25 MG in Sodium Chloride 0.9% 250 ML 250 ML IVPB PRN (15:07)
[2021-02-24] MEDS ORDERED: Albumin 5% 500 ML ONE (15:10)
[2021-02-24] MEDS ORDERED: HUMULIN R 100 UNITS in Sodium Chloride 0.9% 100 ML IVPB SCH (15:15)
[2021-02-24] MEDS ORDERED: Dextrose 50% Abboject 50 ML SYRINGE SLOW IVP PRN (15:15)
[2021-02-24] MEDS ORDERED: Dextrose 5% in Water 1,000 ML IV PRN (15:15)
[2021-02-24] MEDS ORDERED: Lantus 1000 UNITS/10 ML VIAL SC PRN (15:15)
[2021-02-24] MEDS ORDERED: Norepinephrine 8 MG in Dextrose 5% in Water 242 ML IVPB PRN (15:18)
[2021-02-24] MEDS: Insulin Regular 300 UNITS/3 ML VIAL SC PRN (15:24)
[2021-02-24 15:32] LABS: Anion Gap 7 mmol/L (10-20); BUN (Urea Nitrogen) 14 mg/dL (8.4-25.7); Calc. Creatinine Clearance 126 mL/min (70-130); Calcium 7.8 mg/dL (7.8-10.44); Carbon Dioxide 24 mmol/L (23-31); Chloride 113 mmol/L (98-107); Glucose 139 mg/dL (80-115); Potassium 4.7 mmol/L (3.5-5.1); Sodium 139 mmol/L (136-145)
[2021-02-24 15:33] LABS: INR-International Normal Ratio 1.3; PTT 31.1 sec (22.9-36.1)
[2021-02-24] MEDS: ceFAZolin Sodium/D5W 2 GM in Premix Bag 1 BAG IVPB SCH ×2 (15:37→22:25)
[2021-02-24 15:40] LABS: Band 11 % (5-11); Hemoglobin 12.4 g/dL (14.0-18.0); Lymphocytes 7 % (21-51); MDiff Complete? YES; Mean Corpuscular Hemoglobin 33.3 pg (27.0-31.0); Mean Corpuscular Volume 97.8 fL (78.0-98.0); Mean Platelet Volume 6.5 fL (7.4-10.4); Monocytes 4 % (0-10); Neutrophil 72 % (42-75); Platelet Count 297 thou/uL (130-400); Platelet Morphology Comment Appears Adequate; Polychromasia SLIGHT = 2-3 cells (100X) (0-2/hpf); RBC Distribution Width 12.4 % (11.5-14.5); Reactive Lymphocytes 6 % (0-10); Red Blood Cell (RBC) Count 3.73 mill/uL (4.70-6.10); White Blood Cell (WBC) Count 23.3 thou/uL (4.8-10.8)
[2021-02-24] MEDS: Fentanyl 100 MCG/2 ML VIAL SLOW IVP PRN ×5 (15:58→23:05)
[2021-02-24 16:00] LABS: Actual Bicarbonate (HCO3a) 21.3 mEq/L (22-28); Base Excess (BEa) -4.9 mEq/L (-2.0 to +3.0); CO2 Tension 43.5 mmHg (35.0-45.0); Calcium, Ionized (arterial) 1.11 mmol/L (1.12-1.30); Carboxyhemoglobin (COHb) 0.3 gm% (0.0-3.0); O2 Tension (PaO2), arterial 64.6 mmHg (> 80.0); Potassium - ABG Lab 4.13 mmol/L (3.70-5.30); pH, Arterial 7.31 (7.35-7.45)
[2021-02-24 16:01] LABS: ALV-art Gradient 166.225 mmHg (0-20); Puncture Site Arterial Line
[2021-02-24] MEDS: Ketorolac Tromethamine 30 MG/ML VIAL IVP SCH ×2 (17:42→23:04)
[2021-02-24] MEDS: Dutasteride 0.5 MG CAP PO SCH (20:52)
[2021-02-24] MEDS: Famotidine/PF 20 mg/2ml Vial SLOW IVP SCH (20:52)
[2021-02-24] MEDS ORDERED: Bromfenac Sodium [Prolensa] EA EYE SCH (21:00)
[2021-02-24] MEDS ORDERED: Atorvastatin Calcium 20 MG TAB PO SCH (21:00)
[2021-02-24 21:50] LABS: Hemoglobin 11.4 g/dL (14.0-18.0)
[2021-02-24] MEDS: HYDROcodone/Acetaminophen 5/325 mg Tablet PO PRN (22:07)
[2021-02-24] MEDS: Potassium Chloride 20 MEQ/100 ML PREMIX BAG IVPB PRN (22:25)
[2021-02-25] MEDS: Fentanyl 100 MCG/2 ML VIAL SLOW IVP PRN ×10 (00:58→23:46)
[2021-02-25] MEDS: HYDROcodone/Acetaminophen 5/325 mg Tablet PO PRN ×2 (02:10→05:57)
[2021-02-25] MEDS: Ketorolac Tromethamine 30 MG/ML VIAL IVP SCH ×4 (05:00→23:45)
[2021-02-25 05:04] LABS: #Lymphocytes 1.4 thou/uL (1.20-3.40); #Monocytes 1.5 thou/uL (0.11-0.59); #Neutrophils 9.5 thou/uL (1.40-6.50); %Eosinophils 0.2 % (0.0-10.0); %Lymphocytes 11.3 % (21.0-51.0); %Monocytes 12.2 % (0.0-10.0); %Neutrophils 76.3 % (42.0-75.0); Hemoglobin 11.1 g/dL (14.0-18.0); Mean Corpuscular HGB CONC 33.4 g/dL (32.0-36.0); Mean Corpuscular Hemoglobin 32.1 pg (27.0-31.0); Mean Corpuscular Volume 96.2 fL (78.0-98.0); Mean Platelet Volume 6.8 fL (7.4-10.4); Platelet Count 273 thou/uL (130-400); RBC Distribution Width 12.2 % (11.5-14.5); Red Blood Cell (RBC) Count 3.44 mill/uL (4.70-6.10); White Blood Cell (WBC) Count 12.4 thou/uL (4.8-10.8)
[2021-02-25 05:14] LABS: Anion Gap 11 mmol/L (10-20); BUN (Urea Nitrogen) 16 mg/dL (8.4-25.7); Calc. Creatinine Clearance 134 mL/min (70-130); Calcium 7.8 mg/dL (7.8-10.44); Carbon Dioxide 19 mmol/L (23-31); Chloride 112 mmol/L (98-107); Glucose 117 mg/dL (80-115); Sodium 138 mmol/L (136-145)
[2021-02-25] MEDS: Potassium Chloride 20 MEQ/100 ML PREMIX BAG IVPB PRN (05:59)
[2021-02-25] MEDS: ceFAZolin Sodium/D5W 2 GM in Premix Bag 1 BAG IVPB SCH (06:02)
[2021-02-25] MEDS: Polyethylene Glycol 3350 17 GM Packet PO SCH (08:52)
[2021-02-25] MEDS: Famotidine/PF 20 mg/2ml Vial SLOW IVP SCH (08:52)
[2021-02-25] MEDS ORDERED: Aspirin 325 MG TAB PO SCH (09:00)
[2021-02-25] MEDS ORDERED: FLU VACC QS2021-22(65YR UP)/PF 240 MCG/0.7 ML SYRINGE IM ONE (09:00)
[2021-02-25] MEDS: oxyCODONE/Acetaminophen 5 mg/325 mg Tablet PO SCH ×3 (10:29→20:43)
[2021-02-25] MEDS: Insulin Regular 300 UNITS/3 ML VIAL SC PRN ×3 (11:13→20:07)
[2021-02-25] MEDS ORDERED: Milk Of Magnesia 30 ML UDCUP PO PRN (11:17)
[2021-02-25] MEDS ORDERED: Zolpidem Tartrate 5 MG TAB PO PRN (11:17)
[2021-02-25] MEDS ORDERED: diphenhydrAMINE 25 MG CAP PO PRN (11:17)
[2021-02-25] MEDS ORDERED: Bisacodyl 10 MG SUPP PR PRN (11:17)
[2021-02-25] MEDS ORDERED: Mineral Oil ENEMA PR PRN (11:17)
[2021-02-25] MEDS ORDERED: Mag-Al 1200 mg/1200 mg/30 ML UDCUP PO PRN (11:17)
[2021-02-25] MEDS ORDERED: Bisacodyl 5 MG TAB PO PRN (11:17)
[2021-02-25] MEDS ORDERED: Guaifenesin DM 100-10/5 ML UDCUP PO PRN (11:17)
[2021-02-25] MEDS ORDERED: Nitroglycerin 0.4 MG TAB (25 Tab Bottle) SL PRN (11:17)
[2021-02-25] MEDS ORDERED: Dextrose 5% in Water 1,000 ML IV PRN (12:45)
[2021-02-25] MEDS: Atorvastatin Calcium 20 MG TAB PO SCH (20:42)
[2021-02-25] MEDS: Dutasteride 0.5 MG CAP PO SCH (20:42)
[2021-02-25] MEDS: Venlafaxine HCl XR 75 MG CAP PO SCH (20:45)
[2021-02-26] MEDS: Fentanyl 100 MCG/2 ML VIAL SLOW IVP PRN ×8 (01:48→16:05)
[2021-02-26] MEDS: oxyCODONE/Acetaminophen 5 mg/325 mg Tablet PO SCH ×3 (02:47→15:17)
[2021-02-26 05:45] VITALS: BMI 29.4
[2021-02-26] MEDS: Ketorolac Tromethamine 30 MG/ML VIAL IVP SCH ×3 (06:09→17:49)
[2021-02-26] MEDS: Polyethylene Glycol 3350 17 GM Packet PO SCH (08:11)
[2021-02-26] MEDS: Potassium Chloride 10 MEQ TAB PO SCH (08:12)
[2021-02-26] MEDS: Spironolactone 25 MG TAB PO SCH (08:12)
[2021-02-26] MEDS: Furosemide 40 MG TAB PO SCH (08:12)
[2021-02-26] MEDS: Insulin Regular 300 UNITS/3 ML VIAL SC PRN ×2 (08:41→21:03)
[2021-02-26] MEDS: Venlafaxine HCl XR 75 MG CAP PO SCH ×2 (08:48→20:57)
[2021-02-26] MEDS: Aspirin 325 mg Enteric Coated Tablet PO SCH (08:48)
[2021-02-26] MEDS: Amiodarone 450 MG, Admixture Fee 1 EACH in Dextrose 5% in Water 250 ML IVPB SCH (15:18)
[2021-02-26] MEDS ORDERED: diphenhydrAMINE 50 MG/ML VIAL IVP PRN (17:02)
[2021-02-26] MEDS ORDERED: diphenhydrAMINE 50 MG/ML VIAL IM PRN (17:02)
[2021-02-26] MEDS ORDERED: Promethazine HCl 25 MG/ML VIAL IM PRN (17:02)
[2021-02-26] MEDS ORDERED: Naloxone HCl 0.4 mg/ml Vial IV PRN (17:02)
[2021-02-26] MEDS ORDERED: Ondansetron PF 4 MG/2 ML Vial IVP PRN (17:02)
[2021-02-26] MEDS ORDERED: diphenhydrAMINE 25 MG CAP PO PRN (17:02)
[2021-02-26] MEDS ORDERED: Communication Order-Pharmacy FS SCH (17:15)
[2021-02-26] MEDS: fentaNYL Citrate/PF 2,000 MCG in Sodium Chloride 0.9% 60 ML IV PRN (18:04)
[2021-02-26] MEDS: Atorvastatin Calcium 20 MG TAB PO SCH (20:57)
[2021-02-26] MEDS: Zolpidem Tartrate 5 MG TAB PO PRN (20:57)
[2021-02-26] MEDS: Dutasteride 0.5 MG CAP PO SCH (20:58)
[2021-02-27] MEDS: Ketorolac Tromethamine 30 MG/ML VIAL IVP SCH (00:09)
[2021-02-27] MEDS: Amiodarone 450 MG, Admixture Fee 1 EACH in Dextrose 5% in Water 250 ML IVPB SCH ×2 (00:37→10:16)
[2021-02-27] MEDS: Insulin Regular 300 UNITS/3 ML VIAL SC PRN ×2 (06:22→21:27)
[2021-02-27] MEDS: Ketorolac Tromethamine 30 MG/ML VIAL IVP PRN (06:22)
[2021-02-27] MEDS: Venlafaxine HCl XR 75 MG CAP PO SCH ×2 (07:45→21:22)
[2021-02-27] MEDS: Spironolactone 25 MG TAB PO SCH (07:45)
[2021-02-27] MEDS: Potassium Chloride 10 MEQ TAB PO SCH (07:45)
[2021-02-27] MEDS: Aspirin 325 mg Enteric Coated Tablet PO SCH (07:45)
[2021-02-27] MEDS: Furosemide 40 MG TAB PO SCH (07:46)
[2021-02-27] MEDS: Polyethylene Glycol 3350 17 GM Packet PO SCH (07:46)
[2021-02-27] MEDS: Tamsulosin HCl 0.4 MG CAP PO SCH ×2 (07:46→21:21)
[2021-02-27] MEDS: oxyCODONE/Acetaminophen 5 mg/325 mg Tablet PO PRN ×3 (08:25→21:22)
[2021-02-27] MEDS: fentaNYL Citrate/PF 2,000 MCG in Sodium Chloride 0.9% 60 ML IV PRN (12:36)
[2021-02-27] MEDS: Acetaminophen 325 MG TAB PO SCH ×2 (17:04→23:56)
[2021-02-27] MEDS: Atorvastatin Calcium 20 MG TAB PO SCH (21:21)
[2021-02-27] MEDS: Dutasteride 0.5 MG CAP PO SCH (21:22)
[2021-02-27] MEDS: Zolpidem Tartrate 5 MG TAB PO PRN (23:56)
[2021-02-28 04:49] LABS: Anion Gap 12 mmol/L (10-20); BUN (Urea Nitrogen) 26 mg/dL (8.4-25.7); Calc. Creatinine Clearance 113 mL/min (70-130); Calcium 8.9 mg/dL (7.8-10.44); Carbon Dioxide 23 mmol/L (23-31); Chloride 104 mmol/L (98-107); Glucose 103 mg/dL (80-115); Potassium 4.7 mmol/L (3.5-5.1); Sodium 134 mmol/L (136-145)
[2021-02-28] MEDS: Acetaminophen 325 MG TAB PO SCH (05:44)
[2021-02-28] MEDS: oxyCODONE/Acetaminophen 5 mg/325 mg Tablet PO PRN ×4 (05:45→20:20)
[2021-02-28] MEDS: Spironolactone 25 MG TAB PO SCH (07:35)
[2021-02-28] MEDS: Potassium Chloride 10 MEQ TAB PO SCH (07:35)
[2021-02-28] MEDS: Polyethylene Glycol 3350 17 GM Packet PO SCH (07:35)
[2021-02-28] MEDS: Tamsulosin HCl 0.4 MG CAP PO SCH ×2 (07:36→20:20)
[2021-02-28] MEDS: Furosemide 40 MG TAB PO SCH (07:36)
[2021-02-28] MEDS: Venlafaxine HCl XR 75 MG CAP PO SCH ×2 (07:36→20:19)
[2021-02-28] MEDS: Aspirin 325 mg Enteric Coated Tablet PO SCH (07:38)
[2021-02-28] MEDS ORDERED: Amiodarone 200 MG TAB PO SCH (09:00)
[2021-02-28] MEDS ORDERED: oxyCODONE/Acetaminophen 5 mg/325 mg Tablet PO PRN (09:15)
[2021-02-28] MEDS: ALPRAZolam 0.5 MG TAB PO PRN ×2 (11:16→21:45)
[2021-02-28] MEDS: Amiodarone 200 MG TAB PO SCH ×2 (15:13→20:19)
[2021-02-28] MEDS: Dutasteride 0.5 MG CAP PO SCH (20:19)
[2021-02-28] MEDS: Atorvastatin Calcium 20 MG TAB PO SCH (20:20)
[2021-03-01] MEDS: oxyCODONE/Acetaminophen 5 mg/325 mg Tablet PO PRN ×3 (03:30→13:45)
[2021-03-01] MEDS: Tamsulosin HCl 0.4 MG CAP PO SCH (08:40)
[2021-03-01] MEDS: Polyethylene Glycol 3350 17 GM Packet PO SCH (08:40)
[2021-03-01] MEDS: Potassium Chloride 10 MEQ TAB PO SCH (08:40)
[2021-03-01] MEDS: Venlafaxine HCl XR 75 MG CAP PO SCH (08:40)
[2021-03-01] MEDS: Spironolactone 25 MG TAB PO SCH (08:40)
[2021-03-01] MEDS: Furosemide 40 MG TAB PO SCH (08:41)
[2021-03-01] MEDS: Amiodarone 200 MG TAB PO SCH (08:41)
[2021-03-01] MEDS: Aspirin 325 mg Enteric Coated Tablet PO SCH (08:41)
[2021-03-01] MEDS: Ketorolac Tromethamine 30 MG/ML VIAL IVP PRN (11:30)
[2021-03-01] MEDS: ALPRAZolam 0.5 MG TAB PO PRN ×2 (11:30→18:07)
[2021-03-01 16:02] VITALS: BP 97/54; TEMP 98.6
[2021-03-01] MEDS ORDERED: Amiodarone 200 MG TAB PO SCH (21:00)
== END 2021-03-01 18:24 | disposition home or self-care (01) | DRG 236 ==
LOC: SURG A 02-24 05:59 → EDSTATUS 02-24 09:30 → CCU 02-24 14:24 → 2NO 02-28 16:06
PROVIDERS: ADMIT Thoracic Surgery (Cardiothoracic Vascular Surgery); ATTEND Thoracic Surgery (Cardiothoracic Vascular Surgery)
PROC: 02100Z9 Bypass Coronary Artery, One Artery from Left Internal Mammary, Open Approach (ICD-10-PCS; principal; 2021-02-24)
PROC: 021009W Bypass Coronary Artery, One Artery from Aorta with Autologous Venous Tissue, Open Approach (ICD-10-PCS; 2021-02-24)
PROC: 06BQ0ZZ Excision of Left Saphenous Vein, Open Approach (ICD-10-PCS; 2021-02-24)
PROC: 5A1221Z Performance of Cardiac Output, Continuous (ICD-10-PCS; 2021-02-24)
PROC: 02L70ZK Occlusion of Left Atrial Appendage, Open Approach (ICD-10-PCS; 2021-02-24)
DX: I25.10 Atherosclerotic heart disease of native coronary artery without angina pectoris (principal); I10 Essential (primary) hypertension; N40.0 Benign prostatic hyperplasia without lower urinary tract symptoms; G89.29 Other chronic pain; R73.03 Prediabetes; E78.00 Pure hypercholesterolemia, unspecified; J43.9 Emphysema, unspecified; I48.0 Paroxysmal atrial fibrillation; Z96.653 Presence of artificial knee joint, bilateral; Z90.49 Acquired absence of other specified parts of digestive tract; Z87.891 Personal history of nicotine dependence
CPT/HCPCS: 36416; 36430; 71045; 80048; 82805; 85025; 85027; 85610; 85730; 86850; 86900; 86901; 93005; 93010; 93798; 94002; 94640; 97139; C1713; J0282; J1265; J1642; J1644; J1815; J1885; J2001; J2150; J2250; J2270; J2405; J2440; J2704; J2720; J3010; J3370; J3475; J3480; J3490; J7070; J7120; J7620; P9045; S0017; S0028

== ENCOUNTER 2021-08-14 10:45 | Outpatient (CLI) | payer MEDICARE ==
[2021-08-14 11:42] LABS: Hemoglobin 13.3 g/dL (13.5-17.5); Mean Corpuscular Hemoglobin 30.4 pg (27.0-33.0); Mean Platelet Volume 9.3 fl (7.4-10.4); Platelet Count 301 10x3/uL (150-450); RBC Distribution Width 13.7 % (11.5-14.5); Red Blood Cell (RBC) Count 4.38 10x6/uL (4.32-5.72); White Blood Cell (WBC) Count 8.9 10x3/uL (3.5-10.5)
[2021-08-14 12:19] LABS: Anion Gap 14 mmol/L (10-20); BUN (Urea Nitrogen) 15 mg/dL (8.4-25.7); Calc. Creatinine Clearance 0 mL/min (70-130); Calcium 8.8 mg/dL (7.8-10.44); Carbon Dioxide 20 mmol/L (23-31); Chloride 110 mmol/L (98-107); Glucose 191 mg/dL (80-115); Potassium 4.1 mmol/L (3.5-5.1); Sodium 140 mmol/L (136-145)
[2021-08-14 20:15] LABS: SARS-CoV-2 PCR by NAA Not Detected (NotDetected)
== END 2021-08-14 10:46 | disposition home or self-care (01) ==
LOC: LABBT 10:45
PROVIDERS: ATTEND Thoracic Surgery (Cardiothoracic Vascular Surgery)
DX: Z01.812 Encounter for preprocedural laboratory examination (principal); I25.10 Atherosclerotic heart disease of native coronary artery without angina pectoris; I51.9 Heart disease, unspecified; Z20.822 Contact with and (suspected) exposure to COVID-19
CPT/HCPCS: 80048; 85027; U0003; U0005

== ENCOUNTER 2021-08-15 05:52 | Day surgery (SDC) | payer MEDICARE ==
[2021-08-14 09:44] VITALS: BMI 27.3
[2021-08-15] MEDS ORDERED: Bupivacaine PF 0.5% 30 ML VIAL ONE (06:14)
[2021-08-15] MEDS ORDERED: EPINEPHrine 1 MG/ML AMP ONE (06:14)
[2021-08-15] MEDS ORDERED: fentaNYL Citrate/PF 100 MCG/2 ML SYRINGE ONE (07:07)
[2021-08-15] MEDS ORDERED: CEFAZOLIN 2 GM VIAL ONE (07:13)
[2021-08-15] MEDS ORDERED: Sodium Chloride 0.9% 100 ML ONE (07:13)
[2021-08-15] MEDS ORDERED: PROPOFOL 200 MG/20 ML VIAL ONE (07:20)
[2021-08-15] MEDS ORDERED: Ketorolac Tromethamine 30 MG/ML VIAL ONE (07:20)
[2021-08-15] MEDS ORDERED: ePHEDrine 50 MG/ML VIAL ONE (07:20)
[2021-08-15] MEDS ORDERED: Ondansetron PF 4 MG/2 ML Vial ONE (07:20)
[2021-08-15] MEDS ORDERED: Dexamethasone 20 MG/5 ML VIAL ONE (07:20)
[2021-08-15] MEDS ORDERED: Fentanyl 100 MCG/2 ML VIAL ONE ×2 (08:28→08:46)
== END 2021-08-15 10:00 | disposition home or self-care (01) ==
LOC: SDC 05:52
PROVIDERS: ATTEND Thoracic Surgery (Cardiothoracic Vascular Surgery)
PROC: 0PP004Z Removal of Internal Fixation Device from Sternum, Open Approach (ICD-10-PCS; principal; 2021-08-15)
DX: T85.848A Pain due to other internal prosthetic devices, implants and grafts, initial encounter (principal); I25.10 Atherosclerotic heart disease of native coronary artery without angina pectoris; I10 Essential (primary) hypertension; R73.03 Prediabetes; J43.9 Emphysema, unspecified; G89.29 Other chronic pain; M54.9 Dorsalgia, unspecified; M19.90 Unspecified osteoarthritis, unspecified site; N40.0 Benign prostatic hyperplasia without lower urinary tract symptoms; Z87.891 Personal history of nicotine dependence; Z79.82 Long term (current) use of aspirin; Z79.84 Long term (current) use of oral hypoglycemic drugs; Z79.899 Other long term (current) drug therapy; Z95.1 Presence of aortocoronary bypass graft; Y81.8 Miscellaneous general- and plastic-surgery devices associated with adverse incidents, not elsewhere classified
CPT/HCPCS: J0171; J1100; J1885; J2405; J2704; J3010; J3490; S0020

== ENCOUNTER 2022-02-08 05:57 | Observation (INO) | payer MEDICARE ==
[2022-02-08] MEDS ORDERED: Midazolam HCl 2 mg/2 ml Vial ONE (06:19)
[2022-02-08] MEDS ORDERED: fentaNYL PF 100 MCG/2 ML SYRINGE ONE (06:20)
[2022-02-08] MEDS ORDERED: PROPOFOL 200 MG/20 ML VIAL ONE (06:40)
[2022-02-08] MEDS ORDERED: Ketorolac Tromethamine 30 MG/ML VIAL ONE (06:40)
[2022-02-08] MEDS ORDERED: Ondansetron PF 4 MG/2 ML Vial ONE (06:40)
[2022-02-08] MEDS ORDERED: Rocuronium Bromide 10 MG/ML (10ML VIAL) ONE (06:40)
[2022-02-08] MEDS ORDERED: ePHEDrine 50 MG/ML VIAL ONE (06:40)
[2022-02-08] MEDS ORDERED: Glycopyrrolate 0.2 MG/ML 5 ML SYRINGE ONE (06:40)
[2022-02-08] MEDS ORDERED: PHENYLEPHRINE-NS 100 MCG/ML 10 ML SYRINGE ONE (06:40)
[2022-02-08] MEDS ORDERED: Dexamethasone 20 MG/5 ML VIAL ONE (06:40)
[2022-02-08] MEDS ORDERED: NEOSTIGMINE 3 MG/3 ML SYR 3 MG/3 ML SYRINGE ONE (06:40)
[2022-02-08] MEDS ORDERED: HYDROcodone/Acetaminophen 10/325 mg Tablet PO PRN ×2 (06:50)
[2022-02-08] MEDS ORDERED: Vancomycin (BATCH) 1.5 GRAM/300 ML BAG ONE (07:05)
[2022-02-08] MEDS ORDERED: Tranexamic Acid 1,000 MG/10 ML VIAL ONE (07:05)
[2022-02-08] MEDS ORDERED: oxyCODONE/Acetaminophen 5 mg/325 mg Tablet PO PRN (07:08)
[2022-02-08] MEDS ORDERED: Sodium Chloride 0.9% 100 ML ONE ×2 (07:10→07:26)
[2022-02-08] MEDS ORDERED: CEFAZOLIN 2 GM VIAL ONE (07:26)
[2022-02-08] MEDS ORDERED: Ropivacaine 0.5% HCl/PF (150 MG/30 ML VIAL) ONE (07:40)
[2022-02-08] MEDS ORDERED: HYDROmorphone 2 MG/ML VIAL ONE (08:12)
[2022-02-08] MEDS ORDERED: Promethazine HCl 25 MG/ML VIAL IM PRN ×2 (08:15→10:45)
[2022-02-08] MEDS ORDERED: Ropivacaine 0.2% 550 ML 550 ML NERVE BLCK SCH (08:15)
[2022-02-08] MEDS ORDERED: Zolpidem Tartrate 5 MG TAB PO PRN ×2 (08:15→10:45)
[2022-02-08] MEDS ORDERED: Ketorolac Tromethamine 30 MG/ML VIAL IVP PRN (08:15)
[2022-02-08] MEDS ORDERED: traMADol HCl 50 MG TAB PO PRN ×2 (08:15)
[2022-02-08] MEDS ORDERED: Ondansetron PF 4 MG/2 ML Vial IVP PRN ×2 (08:15→10:45)
[2022-02-08] MEDS ORDERED: HYDROcodone/Acetaminophen 5/325 mg Tablet PO PRN ×2 (08:15)
[2022-02-08] MEDS ORDERED: FENTANYL 50 MCG/ML 1 ML VIAL ONE ×2 (09:50→10:59)
[2022-02-08] MEDS ORDERED: HYDROmorphone 0.5 MG/0.5 ML SYRINGE ONE (10:16)
[2022-02-08] MEDS ORDERED: Fentanyl CADD 100 ML IVPB SCH (10:45)
[2022-02-08] MEDS ORDERED: Naloxone HCl 0.4 mg/ml Vial IV PRN (10:45)
[2022-02-08] MEDS ORDERED: diphenhydrAMINE 50 MG/ML VIAL IM/IV PRN (10:45)
[2022-02-08] MEDS ORDERED: diphenhydrAMINE 25 MG CAP PO PRN (10:45)
[2022-02-08] MEDS ORDERED: Venlafaxine HCl XR 75 MG CAP PO SCH (11:00)
[2022-02-08] MEDS: Sodium Chloride 0.9% 1,000 ML IV SCH (13:51)
[2022-02-08] MEDS: metFORMIN 500 MG TAB PO SCH ×2 (13:51→15:59)
[2022-02-08] MEDS: Spironolactone 25 MG TAB PO SCH (13:51)
[2022-02-08] MEDS: Vit A,C & E/Lutein/Minerals Tablet PO SCH ×2 (13:52→21:41)
[2022-02-08] MEDS: Acetaminophen 500 MG TAB PO SCH ×3 (13:52→23:33)
[2022-02-08] MEDS: Ketorolac Tromethamine 30 MG/ML VIAL IVP SCH ×3 (13:52→23:33)
[2022-02-08 14:22] VITALS: BMI 28.1
[2022-02-08] MEDS: CEFAZOLIN 2 GM in Sodium Chloride 0.9% 100 ML IVPB SCH ×2 (15:58→23:34)
[2022-02-08] MEDS ORDERED: Dutasteride 0.5 MG CAP PO SCH (21:00)
[2022-02-08] MEDS ORDERED: Rosuvastatin 10 MG TAB PO SCH (21:00)
[2022-02-08] MEDS: oxyCODONE 5 MG TAB PO SCH (21:42)
[2022-02-08] MEDS: Venlafaxine HCl XR 75 MG CAP PO SCH (21:43)
[2022-02-09] MEDS: Sodium Chloride 0.9% 1,000 ML IV SCH ×2 (03:31→06:04)
[2022-02-09] MEDS: Ketorolac Tromethamine 30 MG/ML VIAL IVP SCH (05:59)
[2022-02-09] MEDS: Acetaminophen 500 MG TAB PO SCH (05:59)
[2022-02-09] MEDS: metFORMIN 500 MG TAB PO SCH (08:06)
[2022-02-09] MEDS: Spironolactone 25 MG TAB PO SCH (08:06)
[2022-02-09] MEDS: Venlafaxine HCl XR 75 MG CAP PO SCH (08:06)
[2022-02-09] MEDS: Vit A,C & E/Lutein/Minerals Tablet PO SCH (08:06)
[2022-02-09 08:10] VITALS: BP 140/62; TEMP 98
[2022-02-09] MEDS: oxyCODONE 5 MG TAB PO SCH (10:09)
== END 2022-02-09 10:30 | disposition home or self-care (01) ==
LOC: SDC 05:57 → INTOOBSV 13:54 → SURG B 13:54
PROVIDERS: ADMIT Orthopaedic Surgery; ATTEND Orthopaedic Surgery
PROC: 0RRJ00Z Replacement of Right Shoulder Joint with Reverse Ball and Socket Synthetic Substitute, Open Approach (ICD-10-PCS; principal; 2022-02-08)
DX: M19.111 Post-traumatic osteoarthritis, right shoulder (principal); M75.21 Bicipital tendinitis, right shoulder; M19.112 Post-traumatic osteoarthritis, left shoulder; I10 Essential (primary) hypertension; N40.0 Benign prostatic hyperplasia without lower urinary tract symptoms; Z87.891 Personal history of nicotine dependence; Z79.84 Long term (current) use of oral hypoglycemic drugs; Z79.899 Other long term (current) drug therapy; Z95.1 Presence of aortocoronary bypass graft; Z96.652 Presence of left artificial knee joint; Z98.1 Arthrodesis status; Z98.890 Other specified postprocedural states
CPT/HCPCS: A4306; C1713; C1776; J1100; J1170; J1885; J2250; J2405; J2704; J2795; J3010; J3370; J3490; J7050